=== PATIENT | male | born 1955 | race Caucasian/White ===

== ENCOUNTER 2020-02-02 14:17 | Emergency (ER) | payer OTHER ==
[~2020-02-02] VITALS: Ht 167.6 cm; Wt 62.6 kg
[2020-02-02 14:28] VITALS: BP 159/90
[2020-02-02 15:30] VITALS: BP 144/88
[2020-02-02] MEDS ORDERED: BUPIVACAINE-MPF 0.25% 30 ML VIAL INJ ONE (15:30)
[2020-02-02] MEDS ORDERED: LIDOCAINE MPF 1% 10 MG/ML VIAL INJ ONE (15:30)
== END 2020-02-02 16:22 | disposition home or self-care (01) ==
LOC: MED 14:17
DX: S92.511A Displaced fracture of proximal phalanx of right lesser toe(s), initial encounter for closed fracture (principal); W22.8XXA Striking against or struck by other objects, initial encounter; Y93.89 Activity, other specified; Y92.096 Garden or yard of other non-institutional residence as the place of occurrence of the external cause; Y99.8 Other external cause status
CPT/HCPCS: 28515; 73630; 99285; J2001; J3490

== ENCOUNTER 2020-05-26 10:37 | Emergency (ER) | payer OTHER ==
[~2020-05-26] VITALS: Ht 167.6 cm; Wt 68.0 kg
[2020-05-26 10:41] VITALS: BP 154/86
--- NOTE | 2020-05-26 10:45 | NUR ---
PT WHEELCHAIR ASSISTED TO BED 12
--- NOTE | 2020-05-26 10:52 | NUR ---
64 Y/O M C/C LEFT KNEE INJURY, PER PT FELL FROM [place] YESTERDAY AT 2100 HOURS, DENIES HEAD INJURY OR LOC. PT PRESENTS WITH PAIN ON LEFT KNEE, AREA WITH BRUISE AND ROAD RASH, NO BLEEDING NOTED. ROM LIMITED TO BENDING KNEE AT 90 DEGREES. PT NKA. NO HX. NO RX. NO NVD. SIDE RAIL X1.
[2020-05-26] MEDS ORDERED: IBUPROFEN 800 MG TAB PO ONE (10:55)
--- NOTE | 2020-05-26 10:55 | NUR ---
ERMD AT BEDSIDE
--- NOTE | 2020-05-26 10:55 | NUR ---
RAD AT BEDSIDE
[2020-05-26 11:38] VITALS: BP 142/80
== END 2020-05-26 11:38 | disposition home or self-care (01) ==
LOC: MED 10:37
DX: S89.82XA Other specified injuries of left lower leg, initial encounter (principal); V19.88XA Pedal cyclist (driver) (passenger) injured in other specified transport accidents, initial encounter; Y93.89 Activity, other specified; Y92.89 Other specified places as the place of occurrence of the external cause; Y99.8 Other external cause status
CPT/HCPCS: 73562; 99283